=== PATIENT | male | born 1975 | race Two or more races ===

== ENCOUNTER 2022-10-22 12:57 | Emergency (ER) | payer OTHER ==
[~2022-10-22] VITALS: Ht 177.8 cm; Wt 88.0 kg
[~2022-10-22 12:57] MED LIST: GABA300C PO
[2022-10-22 13:13] VITALS: BP 149/99; TEMP 98.4
[2022-10-22] MEDS ORDERED: GABA300C PO (14:17)
[2022-10-22 14:25] VITALS: O2SAT 97
== END 2022-10-22 14:26 | disposition home or self-care (01) ==
LOC: ER 13:00
DX: G62.9 Polyneuropathy, unspecified (principal); Z76.0 Encounter for issue of repeat prescription; Z79.899 Other long term (current) drug therapy